=== PATIENT | male | born 1975 | race Caucasian/White ===

== ENCOUNTER 2017-03-27 19:20 | Emergency (ER) | payer OTHER ==
[~2017-03-27] VITALS: Ht 188 cm; Wt 121.8 kg
[~2017-03-27 19:20] MED LIST: ULTRACET1 TABLET PO
[2017-03-27 20:03] LABS: MCH 30.5 PG (29.0-34.0); MCV 89.6 FL (86-99); MEAN PLAT.VOLUME 9.7 uM^3 (9.0-12.4); PLATELET COUNT 281 K/uL (156-360); RBC DIS.WIDTH-SD 42.5 % (39-53); RED BLOOD COUNT 5.02 M/uL (4.00-5.50); WHITE BLOOD COUNT 11.3 K/uL (4.1-10.2)
[2017-03-27 20:12] LABS: CHLORIDE 101 mEq/L (99-109)
[2017-03-27 20:13] LABS: POTASSIUM 3.8 mEq/L (3.7-5.4); SODIUM 138 mEq/L (136-147)
[2017-03-27 20:14] LABS: GLUCOSE 109 mg/dL (70-99)
[2017-03-27 20:16] LABS: ANION GAP 12 MEQ/L (2-14)
[2017-03-27 20:18] LABS: GFR ESTIMATE (CALCULATED) > 59 mL/min/
[2017-03-27 20:19] LABS: UREA NITROGEN (BUN) 11 mg/dL (9-23)
[2017-03-27 20:55] LABS: ADD MIUA? YES; BILIRUBIN NEGATIVE; BLOOD MODERATE; COLOR YELLOW ((YELLOW)); GLUCOSE (STRIP) NEGATIVE; KETONES 5; LEUKOCYTES NEGATIVE; NITRITE NEGATIVE; PROTEIN (STRIP) 30; SPECIFIC GRAVITY 1.021 (1.000-1.030); UROBILINOGEN 0.2 MG/DL (0.2-1.0)
[2017-03-27 21:15] LABS: BACTERIA RARE /HPF; EPITHELIAL CELLS RARE /HPF; HYALINE CASTS 0-5 /LPF; MUCUS 2+ /LPF; RED BLOOD CELLS 30-40 /HPF (0-5); UCUL ADDED? NO; WHITE BLOOD CELLS 0-5 /HPF (0-5)
[2017-03-27] MEDS ORDERED: ZOFRAN ODT4 MG PO (22:12)
[2017-03-27] MEDS ORDERED: TORADOL10 MG PO (22:12)
[2017-03-27] MEDS ORDERED: PERCOCET 5/31 TABLET PO (22:12)
[2017-03-27 22:29] VITALS: BP 162/78
== END 2017-03-27 22:31 | disposition home or self-care (01) ==
LOC: EME 19:20
DX: N13.2 Hydronephrosis with renal and ureteral calculous obstruction (principal)
CPT/HCPCS: 74176; 80048; 81003; 85027; 99281; 99284; J3010